=== PATIENT | female | born 1985 | race Caucasian/White ===

== ENCOUNTER 2021-10-04 08:11 | Emergency (ER) | payer BC, SELFPAY ==
[2021-10-04 08:34] VITALS: BP 126/82; PULSE 86; RESP 15; TEMP 36.7; O2SAT 99; BMI 37.8
[2021-10-04] MEDS: 0.9 % Sodium Chloride 1,000 ML 999 ML IV (08:44)
[2021-10-04 08:50] LABS: MANUAL DIFF FLAG NO
[2021-10-04 08:53] LABS: Basophils Percent Auto 0.5 % (0-2); Eosinophils Absolute Auto 0.1 X10*3/uL (0.0-0.4); Eosinophils Percent Auto 1.3 % (0-4); Hematocrit 40.6 % (37.0-47.0); Hemoglobin 13.2 g/dl (12.0-16.0); Imm Gran Abs Auto 0.03 X10*3/uL (0.00-0.03); Imm Gran Pct Auto 0.4 % (0.0-0.4); Lymphocytes Absolute Auto 1.1 X10*3/uL (1.2-4.9); Lymphocytes Percent Auto 13.7 % (20-40); Mean Corpuscular HGB Conc 32.5 g/dl (31.0-35.0); Mean Corpuscular Hemoglobin 30.1 pg (27.0-33.0); Mean Corpuscular Volume 92.5 fL (80.0-98.0); Mean Platelet Volume 8.9 fL (9.4-12.3); Monocytes Absolute Auto 0.5 X10*3/uL (0.1-1.2); Monocytes Percent Auto 5.6 % (2-11); Neutrophils Absolute Auto 6.5 x10*3/uL (2.0-8.3); Neutrophils Percent Auto 78.5 % (45-73); Platelet Count 337 X10*3/uL (160-400); Red Blood Count 4.39 X10*6/uL (4.20-5.50); Red Cell Distribution Width 12.9 % (11.0-16.0); White Blood Count 8.2 X10*3/uL (4.8-10.8)
[2021-10-04 09:05] LABS: Alanine Aminotransferase 13 U/L (0-31); Albumin Level 4.4 g/dL (3.5-5.0); Alkaline Phosphatase 65 U/L (39-117); Anion Gap 11 (12-20); Aspartate Amino Transferase 18 U/L (5-31); Bilirubin Direct 0.4 mg/dL (0.0-0.5); Bilirubin Total 1.3 mg/dL (0.0-1.0); Blood Urea Nitrogen 8 mg/dL (9-16); Calcium 8.7 mg/dL (8.4-10.2); Carbon Dioxide 27 mmol/L (22-29); Chloride 106 mmol/L (96-108); Creatinine Clr Calc Pharmacy 115.5; Estimated Glomerular Filt Rate > 60; Glucose Random 100 mg/dL (60-115); Sodium 140 mmol/L (135-145); Total Protein 7.1 g/dL (6.5-8.0)
[2021-10-04 09:09] LABS: COVID-19 Test Negative (Negative)
[2021-10-04 09:23] LABS: Appearance Urine HAZY; Color Urine YELLOW; Glucose Urine UA NEG (NEG); Leukocyte Esterase Urine NEG (NEG); Nitrite Urine NEG (NEG); PH 6.5 (5.0-8.0); UACC Culture Trigger NO; Urine Blood 2+ (NEG); Urine Ketones NEG (NEG); Urine Protein NEG (NEG-TRACE)
--- NOTE | 2021-10-04 09:23 | ED.NAVMDI ---
HPI - Nausea/Vomiting/Diarrhea General Chief complaint: Nausea/Vomiting/Diarrhea Stated complaint: vomiting, abd pain, diarrhea Time Seen by Provider: 10/04/21 08:36 Source: patient Mode of arrival: ambulatory Limitations: no limitations History of Present Illness HPI Narrative: 36-year-old woman medical history presents to ED for runny nose, nausea, and diarrhea for the past 4 days. Patient states the 2nd time having this episode. Patient states for the past 2 months before she has a menstruation she has these symptoms. Patient denies any abdominal pain, dysuria, hematuria, flank pain, fever, chills, blood in stool, chest pain, black stool, or shortness of breath. Patient states she is vaccinated against COVID-19. Associated nausea: Yes Related Data Home Medications Medication Instructions Recorded Confirmed cetirizine 10 mg tablet 10 mg PO DAILY 09/06/21 hydroxyzine pamoate 25 mg capsule 25 mg PO Q6H PRN 09/06/21 triamcinolone acetonide 55 mcg 2 spray INTRANASAL DAILY 09/06/21 nasal spray aerosol escitalopram oxalate 5 mg tablet 1 tab PO DAILY 10/04/21 Previous Rx's Medication Instructions Recorded loperamide 2 mg capsule 2 mg PO QID PRN 2 Days #8 cap 10/04/21 Allergies Allergy/AdvReac Type Severity Reaction Status Date / Time No Known Allergies Allergy Verified 09/06/21 09:21 Review of Systems Review of Systems: Yes all other systems are reviewed and are negative Constitutional: Constitutional: Reports as per HPI and Reports no additional constitutional complaints Eyes: Eyes: Reports as per HPI and Reports no additional eye complaints ENT: Reports system reviewed and no additional complaints, except as documented, Reports as per HPI and Reports nasal congestion Cardiovascular: Cardiovascular: Reports as per HPI and Reports no additional cardiovascular complaints Respiratory: Respiratory: Reports as per HPI and Reports no additional respiratory complaints Gastrointestinal: Gastrointestinal: Reports as per HPI, Reports no additional gastrointestinal complaints, Denies abdominal pain, Denies GI cramping, Reports diarrhea and Reports nausea Genitourinary: Genitourinary: Reports no additional female genitourinary complaints and Reports as per HPI Musculoskeletal: Musculoskeletal: Reports no additional musculoskeletal complaints and Reports as per HPI Neurologic: Reports system reviewed and no additional complaints, except as documented and Reports as per HPI Psychiatric: Psychiatric: Reports no additional psychiatric complaints and Reports as per HPI [facility] Social History Social History Patient Tobacco Use Status: Never used Tobacco Use of substances other than those prescribed or required for medical reasons: No Advance Directives: Yes Advance Directives Information Provided: Yes Advance Directives on File: No Patient : No Physical Exam Vital Signs: Vital Signs: Last Vital Signs Temp 98.9 F 10/04/21 09:30 Pulse 81 10/04/21 09:30 Resp 16 10/04/21 09:30 BP 125/81 10/04/21 09:30 Pulse Ox 96 10/04/21 09:30 Body Mass Index 37.8 Const: General: cooperative, healthy appearing, comfortable, no acute distress, well developed, alert, awake and Physically active Orientation/consciousness: patient oriented x3 HENMT: Head: Yes normal to inspection, Yes No palpable skull fracture present, Yes normocephalic, Yes atraumatic, No abrasion, No Acrocyanosis present, No Fischer's sign, No contusion, No cranial bruits, No hematoma, No laceration, No occipital foramen tenderness, No palpable skull fracture, No raccoon eyes, No scalp lesion, No scalp tenderness, No Temporal artery tenderness present and No periorbital ecchymosis Eyes: General: appearance normal, both eyes and all related structures Neck: Neck: Yes normal visual inspection, Yes full ROM, Yes no lymphadenopathy, Yes no meningeal signs, Yes trachea midline, Yes supple and No tender Chest: Chest palpation & inspection: normal inspection of the chest and normal palpation of entire chest wall Resp: Effort & Inspection: normal respiratory effort and able to speak in complete sentences Auscultation: clear to auscultation bilaterally Cardio: Jugular venous distension: no JVD Heart sounds: S1 normal heart sound present and S2 normal heart sound present GI: Inspection: Yes normal to inspection and No abdominal wall ecchymosis Palpation (GI): Soft to palpation, not firm, nontender, no guarding and not rigid : General: No CVA tenderness and Yes no CVA tenderness Back/Spine/Pelvis: Back: no CVA tenderness, No CVA tenderness and No back tenderness Skin: General skin exam: no rashes or lesions noted and elasticity normal Neuro: General: patient oriented x3, gait normal, no meningeal signs and CN's II-XI intact bilaterally Cranial nerves: Yes CN's II-XII intact bilaterally Extrem: General: Yes normal to inspection and Yes full ROM Psych: Appearance: grossly normal, well kempt and not disheveled Course Course Course Narrative: Patient is not in any distress. Labs in fluids ordered. Stool culture ordered. COVID swab ordered. Reevaluation(s) Reevaluation #1: Patient labs are normal. COVID swab negative. Urine came back normal. Patient states not able or have the urge to give stool sample. Patient informed to follow-up with outpatient PCP to have stool culture to check for C diff and other bacteria. Patient is safe for discharge. Patient not in any distress. Time: 10:21 MDM - Nausea/Vomiting/Diarrhea MDM Narrative Medical decision making narrative: Gastroenteritis Lab Data Result diagrams: 10/04/21 08:46 10/04/21 08:46 Labs: Lab Results 10/04/21 10/04/21 10/04/21 Range/Units 08:46 08:46 08:46 WBC 8.2 (4.8-10.8) X10*3/uL RBC 4.39 (4.20-5.50) X10*6/uL Hgb 13.2 (12.0-16.0) g/dl Hct 40.6 (37.0-47.0) % MCV 92.5 (80.0-98.0) fL MCH 30.1 (27.0-33.0) pg MCHC 32.5 (31.0-35.0) g/dl RDW 12.9 (11.0-16.0) % Plt Count 337 (160-400) X10*3/uL MPV 8.9 L (9.4-12.3) fL Immature Gran % (Auto) 0.4 (0.0-0.4) % Neut % (Auto) 78.5 H (45-73) % Lymph % (Auto) 13.7 L (20-40) % Nuckolls % (Auto) 5.6 (2-11) % Eos % (Auto) 1.3 (0-4) % Baso % (Auto) 0.5 (0-2) % Lymph # (Auto) 1.1 L (1.2-4.9) X10*3/uL Nuckolls # (Auto) 0.5 (0.1-1.2) X10*3/uL Eos # (Auto) 0.1 (0.0-0.4) X10*3/uL Baso # (Auto) 0.0 (0.0-0.2) X10*3/uL Abs Immat Gran (auto) 0.03 (0.00-0.03) X10*3/uL Absolute Neuts (auto) 6.5 (2.0-8.3) x10*3/uL Absolute Nucleated RBC 0.000 (0.0-0.012) X10*3/uL Nucleated RBC % (auto) 0.0 (0.0-0.2) /100WBC Sodium 140 (135-145) mmol/L Potassium 4.0 (3.3-5.1) mmol/L Chloride 106 (96-108) mmol/L Carbon Dioxide 27 (22-29) mmol/L Anion Gap 11 L (12-20) BUN 8 L (9-16) mg/dL Creatinine 0.78 (0.5-1.4) mg/dL Estim Creat Clear Calc 115.5 Estimated GFR > 60 Random Glucose 100 (60-115) mg/dL Calcium 8.7 (8.4-10.2) mg/dL Total Bilirubin 1.3 H (0.0-1.0) mg/dL Direct Bilirubin 0.4 (0.0-0.5) mg/dL AST 18 (5-31) U/L ALT 13 (0-31) U/L Alkaline Phosphatase 65 (39-117) U/L Total Protein 7.1 (6.5-8.0) g/dL Albumin 4.4 (3.5-5.0) g/dL Urine Color Urine Appearance Urine pH (5.0-8.0) Ur Specific Hewitt (1.005-1.025) Urine Protein (NEG-TRACE) MG/DL Urine Glucose (UA) (NEG) MG/DL Urine Ketones (NEG) MG/DL Urine Blood (NEG) Urine Nitrite (NEG) Ur Leukocyte Esterase (NEG) Urine RBC (0) /HPF Urine WBC (0-4) /HPF Ur Squamous Epith Cells /LPF Urine Bacteria /LPF Urine Test (NEGATIVE) COVID-19 (NADIA) Negative (Negative) COVID-19 Clin Com See Note 10/04/21 10/04/21 Range/Units 09:12 09:12 WBC (4.8-10.8) X10*3/uL RBC (4.20-5.50) X10*6/uL Hgb (12.0-16.0) g/dl Hct (37.0-47.0) % MCV (80.0-98.0) fL MCH (27.0-33.0) pg MCHC (31.0-35.0) g/dl RDW (11.0-16.0) % Plt Count (160-400) X10*3/uL MPV (9.4-12.3) fL Immature Gran % (Auto) (0.0-0.4) % Neut % (Auto) (45-73) % Lymph % (Auto) (20-40) % Nuckolls % (Auto) (2-11) % Eos % (Auto) (0-4) % Baso % (Auto) (0-2) % Lymph # (Auto) (1.2-4.9) X10*3/uL Nuckolls # (Auto) (0.1-1.2) X10*3/uL Eos # (Auto) (0.0-0.4) X10*3/uL Baso # (Auto) (0.0-0.2) X10*3/uL Abs Immat Gran (auto) (0.00-0.03) X10*3/uL Absolute Neuts (auto) (2.0-8.3) x10*3/uL Absolute Nucleated RBC (0.0-0.012) X10*3/uL Nucleated RBC % (auto) (0.0-0.2) /100WBC Sodium (135-145) mmol/L Potassium (3.3-5.1) mmol/L Chloride (96-108) mmol/L Carbon Dioxide (22-29) mmol/L Anion Gap (12-20) BUN (9-16) mg/dL Creatinine (0.5-1.4) mg/dL Estim Creat Clear Calc Estimated GFR Random Glucose (60-115) mg/dL Calcium (8.4-10.2) mg/dL Total Bilirubin (0.0-1.0) mg/dL Direct Bilirubin (0.0-0.5) mg/dL AST (5-31) U/L ALT (0-31) U/L Alkaline Phosphatase (39-117) U/L Total Protein (6.5-8.0) g/dL Albumin (3.5-5.0) g/dL Urine Color YELLOW Urine Appearance HAZY Urine pH 6.5 (5.0-8.0) Ur Specific Hewitt 1.010 (1.005-1.025) Urine Protein NEG (NEG-TRACE) MG/DL Urine Glucose (UA) NEG (NEG) MG/DL Urine Ketones NEG (NEG) MG/DL Urine Blood 2+ H (NEG) Urine Nitrite NEG (NEG) Ur Leukocyte Esterase NEG (NEG) Urine RBC 10-14 H (0) /HPF Urine WBC 0 (0-4) /HPF Ur Squamous Epith Cells TRACE /LPF Urine Bacteria NONE /LPF Urine Test NEGATIVE (NEGATIVE) COVID-19 (NADIA) (Negative) COVID-19 Clin Com Discharge Plan Discharge Clinical Impression: Gastroenteritis Patient Disposition: Home, Self-Care Instructions: Gastroenteritis (ED), Acute Diarrhea (ED) Additional Instructions: Your blood work came back normal. COVID swab and urine came back negative. You are not able to give a stool sample during ED visit. Please follow-up with primary care provider to give him stool culture to test for C diff and other bacteria in the stool for a return to ED for any abdominal pain, nausea, vomiting, fever, chills, weakness, blood in stool, or any other concerning symptoms. Prescriptions: New loperamide 2 mg capsule 2 mg PO QID PRN (Reason: loose stool) 2 Days Qty: 8 RF: 0 No Action escitalopram oxalate 5 mg tablet 1 tab PO DAILY RF: 0 Stand Alone Forms: Work/School Release Interventions: ED Discharge Assessment Last Done: 10/04/21 10:46 Discharge Date/Time: 10/04/21 10:47 Print Language: Austrian
[2021-10-04 09:25] LABS: UPreg QC Valid YES; Urine Pregnancy NEGATIVE (NEGATIVE)
[2021-10-04 09:30] VITALS: BP 125/81; PULSE 81; RESP 16; TEMP 37.2; O2SAT 96
[2021-10-04 09:31] LABS: Squamous Epithelial Cell Urine TRACE /LPF; WBC Urine 0 /HPF (0-4)
== END 2021-10-04 10:47 | disposition home or self-care (01) ==
PROVIDERS: Physician Assistant; Emergency Provider Emergency Medicine; PCP Family Medicine
DX: K52.9 Noninfective gastroenteritis and colitis, unspecified (principal); R11.2 Nausea with vomiting, unspecified; Z79.899 Other long term (current) drug therapy; Z20.822 Contact with and (suspected) exposure to COVID-19
CPT/HCPCS: 36415; 80053; 81001; 81025; 82248; 85025; 87635; 96360; 99284

== ENCOUNTER → 2021-10-09 11:07 | Outpatient (REF) | payer BC, SELFPAY ==
--- NOTE | 2021-10-09 11:14 | ECG_ITS ---
Test Reason : abn ekg Blood Pressure : / mmHG Vent. Rate : 092 BPM Atrial Rate : 092 BPM P-R Int : 146 ms QRS Dur : 082 ms QT Int : 380 ms P-R-T Axes : 076 -12 057 degrees QTc Int : 469 ms Normal sinus rhythm Left axis deviation Intra-ventricular conduction delay Borderline ECG When compared with ECG of 04-JAN-2020 08:14, No significant change was found Referred By: Margaret Blankenship Electronically Signed By:MELONIE MILLER MD
== END ==
LOC: HO.CARD 11:07
PROVIDERS: PCP Family Medicine; Visit Provider Family Medicine
DX: R94.31 Abnormal electrocardiogram [ECG] [EKG] (principal)
CPT/HCPCS: 93005

== ENCOUNTER → 2021-11-27 14:26 | Outpatient (BNVA) | payer BC, SELFPAY | PROVIDERS: PCP Family Medicine; Referring Provider Family Medicine; Visit Provider Internal Medicine Cardiovascular Disease ==

== ENCOUNTER → 2021-12-13 10:54 | Outpatient (REF) | payer BC, SELFPAY ==
--- NOTE | 2021-12-13 10:58 | HM_ITS ---
Conclusion: 1. Patient was monitored for total period of 3 days and 14 hours 2. Baseline was normal sinus rhythm with average heart rate of 89 beats per minute 3. No significant pauses or bradycardia noted 4. No significant tachyarrhythmias noted 5. No patient reported events MTDD
== END ==
LOC: HO.CARD 10:54
PROVIDERS: PCP Family Medicine; Visit Provider Internal Medicine Cardiovascular Disease
DX: R00.2 Palpitations (principal)
CPT/HCPCS: 93242

== ENCOUNTER → 2022-04-10 15:09 | Outpatient (BNVA) | payer BC, SELFPAY | PROVIDERS: PCP Family Medicine; Referring Provider Family Medicine; Visit Provider Internal Medicine Cardiovascular Disease | DX: R00.2 Palpitations (principal) ==

== ENCOUNTER → 2022-12-22 09:41 | Outpatient (BNVA) | payer BC, SELFPAY | PROVIDERS: PCP Family Medicine; Referring Provider Family Medicine; Visit Provider Internal Medicine Cardiovascular Disease | DX: R00.2 Palpitations (principal) | CPT/HCPCS: 93005 ==

== ENCOUNTER 2023-09-03 07:55 | Emergency (ER) | payer BC, SELFPAY ==
[2023-09-03 07:59] VITALS: BP 154/98; PULSE 73; RESP 16; TEMP 36.6; O2SAT 99; BMI 41.6
--- NOTE | 2023-09-03 08:51 | ED.GENADULT ---
HPI - General Adult General Chief complaint: Nausea/Vomiting/Diarrhea Stated complaint: vomiting weak Time Seen by Provider: 09/03/23 08:50 Source: patient Mode of arrival: ambulatory Limitations: no limitations History of Present Illness HPI narrative: Patient is a 38 year old assigned female at with no reported medical history presenting to the emergency department today with nausea, vomiting, and body aches. Patient states that she had a similar episode last month that resolved on it's own. Patient states that she normally when she begins vomiting, it takes days before it stops. Patient states that she has had to be hospitalized before for vomiting. Patient denies any dizziness, lightheadedness, fever, chills, blurry vision, double vision, loss of vision, chest pain, difficulty breathing, shortness of breath, back pain, night sweats, pain with urination, increased urinary frequency, increased urinary urgency, blood in her urine or stool, syncope or a near syncopal episode, recent trauma or falls, bowel incontinence, bladder incontinence, bowel retention, bladder retention, or any other complaints at this time. Onset (ago): hour(s) Location: abdomen Radiation: non-radiation Pain Consistency: constant Relieving factors: none Exacerbating factors: none Associated symptoms: malaise and nausea/vomiting Treatments prior to arrival: none Related Data Home Medications Medication Instructions Recorded Confirmed triamcinolone acetonide 55 mcg 2 spray intranasal DAILY 09/06/21 12/22/22 nasal spray aerosol aripiprazole 20 mg tablet 20 mg PO BEDTIME PRN 12/22/22 12/22/22 Previous Rx's Medication Instructions Recorded ondansetron 4 mg disintegrating 4 mg PO Q8H 3 days #9 tabs 09/03/23 tablet Allergies Allergy/AdvReac Type Severity Reaction Status Date / Time No Known Allergies Allergy Verified 12/22/22 09:49 Review of Systems Eyes: Eyes: Reports no additional eye complaints, Denies blurry vision, Denies change in vision, Denies diplopia, Denies eye discharge, Denies loss of vision and Denies eye pain ENT: Denies dizziness Cardiovascular: Cardiovascular: Reports no additional cardiovascular complaints, Denies chest pain, Denies lightheadedness, Denies Loss of Consciousness and Denies dyspnea Respiratory: Respiratory: Reports no additional respiratory complaints and Denies dyspnea Gastrointestinal: Gastrointestinal: Reports abdominal pain, Reports diarrhea, Reports nausea, Reports vomiting and Denies hematemesis Genitourinary: Genitourinary: Denies hematuria, Denies urinary frequency, Denies dysuria, Denies urinary incontinence, Denies urinary hesitancy and Denies urinary urgency Musculoskeletal: Musculoskeletal: Reports no additional musculoskeletal complaints, Denies numbness and Denies tingling Neurologic: Denies dizziness, Denies loss of vision, Denies numbness and Denies tingling Psychiatric: Psychiatric: Reports no additional psychiatric complaints Endocrine: Endocrine: Reports no additional endocrine complaints Hematologic/Lymphatic: Hematologic/Lymphatic: Reports no additional hematologic/lymphatic complaints Allergic/Immunologic: Allergic/Immunologic: Reports no additional allergic/immunologic complaints PMFSH Past Medical History Attestation statement: The following information was validated with the patient. (patient's validated all information provided by the patient.) Source: old records reviewed, obtained from family (patient's provided additional history and confirmed the history provided by the patient.) and nursing notes reviewed Medical History Screening cholesterol level Palpitations Medication reaction Surgical History History of section (~2014) History of tonsillectomy Family History Family History Father Heart disease Mother Heart disease Social History Social History Alcohol intake: current Alcohol intake frequency: a few times a month Patient Tobacco Use Status: Never used Tobacco Smoked in Last 30 Days: No Use of substances other than those prescribed or required for medical reasons: Yes Substance Use Type: Marijuana Advance Directives: No Advance Directives Information Provided: Yes Patient : No Physical Exam ED Vital Signs: Vital Signs - 24 hr 09/03/23 07:59 09/03/23 10:23 09/03/23 11:20 Temperature 97.8 F 96.9 F 97.6 F Pulse Rate 73 64 Respiratory Rate 16 17 Blood Pressure 154/98 H 161/71 H Pulse Oximetry 99 Oxygen Delivery Method Room Air BMI result Body Mass Index 41.6 Const General: cooperative, alert, awake and Physically active; No comfortable Nutritional Appearance: well nourished Orientation/consciousness: patient oriented x3 Limitations: no limitations HENMT Head: Yes normal to inspection Ears: hearing grossly normal bilaterally and external ears normal General nose exam: Normal external nose present, no nasal discharge noted and no epistaxis Face and sinus: Yes normal facial exam, No abrasion and No laceration Mouth: Normal oral and palatal mucosa present, no drooling and no muffled voice Eyes General: appearance normal, both eyes and all related structures Periorbital: periorbital findings normal Eyelids: Yes eyelids normal Conjunctivae: conjunctivae normal Pupils: Equal, round and reactive pupils present EOM: EOMs intact bilaterally Neck Neck: Yes normal visual inspection, Yes full ROM and Yes no lymphadenopathy Chest Chest palpation & inspection: normal inspection of the chest and normal palpation of entire chest wall Resp Effort & Inspection: normal respiratory effort, no cough, not labored and no nasal flaring Auscultation: clear to auscultation bilaterally GI Inspection: Yes normal to inspection, No Abdominal wall edema, No distended and No visible herniation Palpation (GI): Soft to palpation, not firm, Tenderness to palpation present (GI) in the epigastrum; Soler's sign negative, no guarding and no hepatosplenomegaly Percussion: Yes normal to percussion Auscultation: normal bowel sounds Neuro General: patient oriented x3 Cranial nerves: Yes Equal, round and reactive pupils present Cognition (Neuro): normal cognition Motor exam (neuro): 5/5 motor strength present throughout Sensory Exam: Normal double simultaneous stimulation for sensation Coordination: [id number] test normal Extrem General: Yes normal to inspection, Yes full ROM and Yes capillary refill normal Psych Appearance: grossly normal Mental Status: mental status grossly normal Affect: normal affect Attitude: cooperative Thought process: Normal thought process present Thought content: Normal thought content present Insight: Good insight present (Psych) Medications Administered Discontinued Medications Generic Name Dose Route Start Last Admin Trade Name Freq PRN Reason Stop Dose Admin Droperidol 1.25 mg 09/03/23 10:41 09/03/23 10:54 Droperidol 5 Mg/2 Ml Vial IVPUSH 09/03/23 10:42 1.25 mg ONCE ONE Administration Hydromorphone HCl 2 mg 09/03/23 11:06 09/03/23 11:11 Hydromorphone Hcl 2 Mg/Ml Vial IVPUSH 09/03/23 11:07 2 mg ONCE ONE Administration Protocol Sodium Chloride 1,000 mls @ 999 mls/hr 09/03/23 09:00 09/03/23 10:57 Ns IV 09/03/23 10:00 Infused .Q1H1M CHUY Infusion Iohexol 85 ml 09/03/23 12:29 09/03/23 12:30 Iohexol 350 Mg/Ml 75 Ml Infus..Btl IV 09/03/23 12:30 85 ml ONCE ONE Administration Ondansetron HCl 4 mg 09/03/23 08:55 09/03/23 09:48 Ondansetron Hcl 4 Mg/2 Ml Vial IVPUSH 09/03/23 08:56 4 mg ONCE ONE Administration Medical Decision Making Medical Decision Making [facility] Narrative: Patient is a 38 year old assigned female at with no reported medical history presenting to the emergency department today with nausea, vomiting, and abdominal pain. Patient's physical exam was as noted in the physical exam portion of this note. Patient's blood work showed a mildly elevated WBC count of 14.3 which I attribute to a stress reaction. Patient's urine showed no acute process. Patient's abdominal/pelvis CT showed no acute process. I explained my physical exam findings as well as all test results to the patient and the patient's . I answered all questions asked by the patient and the patient's . Patient received IV dilaudid, Zofran, Reglan, and droperidol which she stated helped her symptoms significantly. I stressed the importance of the patient taking her medication as prescribed. I stressed the importance of the patient following up with her primary care provider. I stressed the importance of the patient returning to the emergency department immediately if her symptoms were to worsen or if she were to develop any dizziness, shortness of breath, difficulty breathing, chest pain, blurry vision, loss of vision, nausea, vomiting, abdominal pain, fever, chills, back pain, or any other complaints. Patient and the patient's verbalized agreement and understanding with this treatment plan and discharge. Differential Diagnosis Differential Diagnoses: The differential diagnosis associated with the presentation includes Abdominal pain Nausea Vomiting Gastroenteritis Cyclic vomiting syndrome CHS Admission/Observation Consideration of admission/observation: Escalation of care including admission/observation considered Patient would have been admitted to the hospital had her work up had any findings where hospital admission was appropriate and her clinical presentation warranted hospital admission. Lab Data [facility] Lab Attestation statement: I reviewed the patient's lab results. My interpretation of these studies and their corresponding values is that they are grossly normal. 09/03/23 10:24 09/03/23 10:53 Labs: Lab Results 09/03/23 09/03/23 09/03/23 Range/Units 10:24 10:53 13:16 WBC 14.3 H (4.8-10.8) X10*3/uL RBC 4.59 (4.20-5.50) X10*6/uL Hgb 14.1 (12.0-16.0) g/dl Hct 42.5 (37.0-47.0) % MCV 92.6 (80.0-98.0) fL MCH 30.7 (27.0-33.0) pg MCHC 33.2 (31.0-35.0) g/dl RDW 12.8 (11.0-16.0) % Plt Count 404 H (160-400) X10*3/uL MPV 9.2 L (9.4-12.3) fL Immature Gran % (Auto) 0.8 H (0.0-0.4) % Neut % (Auto) 89.1 H (45-73) % Lymph % (Auto) 6.7 L (20-40) % [place] % (Auto) 2.9 (2-11) % Eos % (Auto) 0.1 (0-4) % Baso % (Auto) 0.4 (0-2) % Lymph # (Auto) 1.0 L (1.2-4.9) X10*3/uL [place] # (Auto) 0.4 (0.1-1.2) X10*3/uL Eos # (Auto) 0.0 (0.0-0.4) X10*3/uL Baso # (Auto) 0.1 (0.0-0.2) X10*3/uL Abs Immat Gran (auto) 0.12 H (0.00-0.03) X10*3/uL Absolute Neuts (auto) 12.7 H (2.0-8.3) x10*3/uL Absolute Nucleated RBC 0.000 (0.0-0.012) X10*3/uL Nucleated RBC % (auto) 0.0 (0.0-0.2) /100WBC Sodium Cancelled 140 Potassium Cancelled 3.8 Chloride Cancelled 108 Carbon Dioxide Cancelled 19 L Anion Gap Cancelled 17 BUN Cancelled 12 Creatinine Cancelled 0.76 Estim Creat Clear Calc Cancelled 127.2 Estimated GFR Cancelled > 60 Random Glucose Cancelled 163 H Calcium Cancelled 9.5 D Magnesium Cancelled 1.9 Total Bilirubin Cancelled 0.8 AST Cancelled 17 ALT Cancelled 13 Alkaline Phosphatase Cancelled 78 Total Protein Cancelled 7.6 Albumin Cancelled 4.4 Lipase 17 (8-78) U/L Beta HCG, Quant Cancelled < 2 Urine Color Yellow Urine Appearance Clear Urine pH 8.5 (5.0-9.0) Ur Specific [place] >= 1.030 H (1.005-1.025) Urine Protein Trace (Neg-Trace) mg/dL Urine Glucose (UA) Negative (Negative) mg/dL Urine Ketones 80 (Negative) mg/dL Urine Blood Negative (Negative) Urine Nitrite Negative (Negative) Ur Leukocyte Esterase Negative (Negative) Urine Opiates Screen Not Detected (Not Detect) Urine Fentanyl Screen Not Detected (Not Detect) Ur Barbiturates Screen Not Detected (Not Detect) Ur Phencyclidine Scrn Not Detected (Not Detect) Ur Amphetamines Screen Not Detected (Not Detect) U Benzodiazepines Scrn Not Detected (Not Detect) Urine Cocaine Screen Not Detected (Not Detect) U Marijuana (THC) Screen POSITIVE H (Not Detect) Influenza Type A (PCR) NEGATIVE (Negative) Influenza Type B (PCR) NEGATIVE (Negative) RSV RNA Qual (PCR) NEGATIVE (Negative) SARS-CoV-2 RNA (RT-PCR) NEGATIVE (Negative) Independent Interpretation I performed an independent interpretation of an: CT Scan Interpretation: My interpretation is in agreement with the radiologist's impression of this imaging study. EXAMINATION: CT ABDOMEN AND PELVIS WITH CONTRAST CLINICAL INFORMATION: Abdominal pain COMPARISON: None available. TECHNIQUE: Multidetector volumetric images were obtained from the superior aspect of the liver through the pubic symphysis following administration 85 mL of Omnipaque 350 intravenous contrast. Sagittal and coronal reformatted images were obtained on the technologist's workstation. Oral contrast: No This CT examination was performed using dose optimization techniques as appropriate, variously including the following: *Automated exposure control *Adjustment of mA and/or kV according to patient size (this includes techniques or standardized protocols for targeted exams where dose is matched to indication/reason for exam; i.e. extremities or head) *Use of iterative reconstruction technique DLP: 917 mGy-cm FINDINGS: LUNG BASES: The visualized lung bases are unremarkable. LIVER, GALLBLADDER, AND BILIARY TREE: The liver is normal in size, shape, and attenuation. No focal hepatic lesion or biliary ductal dilatation is present. The gallbladder is unremarkable with no evidence of radiopaque gallstones, gallbladder wall thickening, or obvious pericholecystic inflammatory changes. PANCREAS: Unremarkable. SPLEEN: Unremarkable. ADRENAL GLANDS: Unremarkable. KIDNEYS AND URETERS: The kidneys are normal in size, shape, and attenuation. No hydronephrosis, hydroureter, or calculi seen. No perinephric stranding. BLADDER: Unremarkable. GASTROINTESTINAL TRACT: The small and large bowel are unremarkable. The appendix is unremarkable. ABDOMINAL WALL: Small fat-containing umbilical hernia. Bowel and fat participate but does not appear incarcerated. LYMPH NODES: Normal. VASCULAR: Unremarkable. PELVIC VISCERA: Uterus and adnexal structures are age-appropriate. OSSEOUS STRUCTURES: Unremarkable. CT/CT abdomen pelvis w IV con IMPRESSION: No acute abnormalities. Dictated By: Rowdy Baxter MD Signed By: Electronically signed by Rowdy Baxter MD 09/03/23 1300 Radiology Impression Discussion of test interpretation with radiology: I have reviewed the radiologist's reading. Independent Historian Clinical information obtained from an independent historian. History obtained from or confirmed by: Spouse (patient's provided additional history and confirmed the history provided by the patient) Prescription Management I considered prescription management with: Other (patient given an antiemetic) Critical Care Time Critical Care Time Critical Care Time: Yes Total Critical Care Time: 45 Attestation: I spent 45 minutes of Critical Care Time with this patient. This does not include time spent on separately reported billable procedures. Discharge Plan Discharge Clinical Impression: Nausea & vomiting, Abdominal pain Patient Disposition: Home, Self-Care Instructions: Acute Nausea and Vomiting (ED), Abdominal Pain (ED) Additional Instructions: Follow up with your primary care provider. Return to the emergency department immediately if your symptoms worsen or if you develop any dizziness, shortness of breath, difficulty breathing, chest pain, blurry vision, loss of vision, nausea, vomiting, abdominal pain, fever, chills, back pain, or any other complaints. Prescriptions: New ondansetron 4 mg tablet,disintegrating 4 mg PO Q8H 3 Days Qty: 9 0RF No Action triamcinolone acetonide 55 mcg aerosol,spray 2 spray intranasal DAILY aripiprazole 20 mg tablet 20 mg PO BEDTIME PRN Referrals: Margaret Blankenship DO [Primary Care Provider] - Stand Alone Forms: Work/School Release Interventions: ED Discharge Assessment Last Done: 09/03/23 13:50 Discharge Date/Time: 09/03/23 13:51 Print Language: Slovenian
[2023-09-03 10:23] VITALS: BP 161/71; PULSE 64; RESP 17; TEMP 36.1
--- NOTE | 2023-09-03 11:00 | PC.NURSE ---
at bedside. 2 IVs placed L ac, L chest. pt c/o increased abdominal pain and continued nausea. more comfortable in R lateral position, feels faint when on her back. unable to stand to use commode, near syncope episode. SATISH pal
[2023-09-03 11:18] LABS: Alanine Aminotransferase 13 U/L (0-31); Albumin Level 4.4 g/dL (3.5-5.0); Alkaline Phosphatase 78 U/L (39-117); Anion Gap 17 (12-20); Aspartate Amino Transferase 17 U/L (5-31); Bilirubin Total 0.8 mg/dL (0.0-1.0); Blood Urea Nitrogen 12 mg/dL (9-16); Calcium 9.5 mg/dL (8.4-10.2); Carbon Dioxide 19 mmol/L (22-29); Chloride 108 mmol/L (96-108); Creatinine Clr Calc Pharmacy 127.2; Estimated Glomerular Filt Rate > 60; Glucose Random 163 mg/dL (60-115); Lipase 17 U/L (8-78); Magnesium 1.9 mg/dL (1.6-2.6); Potassium 3.8 mmol/L (3.3-5.1); Sodium 140 mmol/L (135-145); Total Protein 7.6 g/dL (6.5-8.0)
[2023-09-03 11:20] VITALS: TEMP 36.4
[2023-09-03 11:20] LABS: HCG Quantitative < 2 mIU/mL
== END 2023-09-03 13:51 | disposition home or self-care (01) ==
PROVIDERS: Physician Assistant Medical; Emergency Provider Emergency Medicine; PCP Family Medicine
DX: R11.2 Nausea with vomiting, unspecified (principal); R10.9 Unspecified abdominal pain; Z20.822 Contact with and (suspected) exposure to COVID-19; Z20.828 Contact with and (suspected) exposure to other viral communicable diseases; F12.90 Cannabis use, unspecified, uncomplicated; Z79.899 Other long term (current) drug therapy
CPT/HCPCS: 0241U; 36415; 74177; 80053; 80307; 81003; 83690; 83735; 84702; 85025; 96361; 96374; 96375; 99284; J1170; J1790; J2405; Q9967

== ENCOUNTER 2023-09-05 08:16 | Observation (INO) | payer BC, SELFPAY ==
--- NOTE | 2023-09-05 08:36 | ED.GENADULT ---
HPI - General Adult General Chief complaint: Nausea/Vomiting/Diarrhea Stated complaint: non stop throwing up Time Seen by Provider: 09/05/23 08:36 Source: patient Mode of arrival: ambulatory Limitations: no limitations History of Present Illness HPI narrative: Patient is a 38 year old assigned female at with no reported medical history presenting to the emergency department today with nausea, vomiting, and body aches. Patient states that she had a similar episode last month that resolved on it's own, and an episode 2 days ago that resolved after coming here and getting medication. Patient states that she normally when she begins vomiting, it takes days before it stops. Patient states that she has had to be hospitalized before for vomiting. Patient states that she attempted to use the anti nausea medication she was prescribed but it didn't help. Patient denies any dizziness, lightheadedness, fever, chills, blurry vision, double vision, loss of vision, chest pain, difficulty breathing, shortness of breath, back pain, night sweats, pain with urination, increased urinary frequency, increased urinary urgency, blood in her urine or stool, syncope or a near syncopal episode, recent trauma or falls, bowel incontinence, bladder incontinence, bowel retention, bladder retention, or any other complaints at this time. Onset (ago): hour(s) Relieving factors: none Exacerbating factors: none Associated symptoms: nausea/vomiting Treatments prior to arrival: other (zofran) Related Data Home Medications Medication Instructions Recorded Confirmed No Known Home Meds 09/05/23 09/05/23 Allergies Allergy/AdvReac Type Severity Reaction Status Date / Time No Known Allergies Allergy Verified 12/22/22 09:49 Review of Systems Constitutional: Constitutional: Reports no additional constitutional complaints, Denies chills, Denies fever(s) and Denies night sweats Eyes: Eyes: Reports no additional eye complaints, Denies blurry vision, Denies change in vision, Denies diplopia, Denies eye discharge, Denies loss of vision and Denies eye pain ENT: Denies dizziness Cardiovascular: Cardiovascular: Reports no additional cardiovascular complaints, Denies chest pain, Denies lightheadedness, Denies Loss of Consciousness and Denies dyspnea Respiratory: Respiratory: Reports no additional respiratory complaints and Denies dyspnea Gastrointestinal: Gastrointestinal: Reports no additional gastrointestinal complaints, Reports abdominal pain, Denies melena, Denies hematochezia, Denies change in bowel habits, Denies change in stool character, Reports nausea and Reports vomiting Genitourinary: Genitourinary: Denies hematuria, Denies urinary frequency, Denies dysuria, Denies urinary incontinence, Denies urinary hesitancy and Denies urinary urgency Musculoskeletal: Musculoskeletal: Reports no additional musculoskeletal complaints, Denies numbness and Denies tingling Neurologic: Denies dizziness, Denies loss of vision, Denies numbness and Denies tingling Psychiatric: Psychiatric: Reports no additional psychiatric complaints Endocrine: Endocrine: Reports no additional endocrine complaints Hematologic/Lymphatic: Hematologic/Lymphatic: Reports no additional hematologic/lymphatic complaints Allergic/Immunologic: Allergic/Immunologic: Reports no additional allergic/immunologic complaints [facility] Past Medical History Attestation statement: The following information was validated with the patient. Source: old records reviewed and nursing notes reviewed Medical History Screening cholesterol level Palpitations Medication reaction Surgical History History of section (~2014) History of tonsillectomy Family History Family History Father Heart disease Mother Heart disease Social History Social History Household Members: Spouse and Children Housing: House Do you presently have visiting nurse or other home services: No Alcohol intake: current Alcohol intake frequency: a few times a month Patient Tobacco Use Status: Never used Tobacco Substance Use Type: Marijuana service: No Physical Exam ED Vital Signs: Vital Signs - 24 hr 09/05/23 08:38 Temperature 98 F Pulse Rate 81 Respiratory Rate 16 Blood Pressure 151/85 H Pulse Oximetry 99 Oxygen Delivery Method Room Air BMI result Body Mass Index 43.2 Const General: cooperative, no acute distress, alert and awake Nutritional Appearance: well nourished Orientation/consciousness: patient oriented x3 Limitations: no limitations HENMT Head: Yes normal to inspection and Yes atraumatic Ears: hearing grossly normal bilaterally and external ears normal General nose exam: Normal external nose present, no nasal discharge noted and no epistaxis Face and sinus: Yes normal facial exam, No abrasion and No laceration Mouth: Normal oral and palatal mucosa present, no drooling and no muffled voice Eyes General: appearance normal, both eyes and all related structures Periorbital: periorbital findings normal Eyelids: Yes eyelids normal Conjunctivae: conjunctivae normal Pupils: Equal, round and reactive pupils present EOM: EOMs intact bilaterally Neck Neck: Yes normal visual inspection, Yes full ROM and Yes no lymphadenopathy Chest Chest palpation & inspection: normal inspection of the chest Resp Effort & Inspection: normal respiratory effort and able to speak in complete sentences Auscultation: clear to auscultation bilaterally Cardio Rate: regular rate Rhythm: regular rhythm GI Inspection: Yes normal to inspection Palpation (GI): Soft to palpation, not firm, nontender and no guarding Neuro General: patient oriented x3 and moves all extremities Cranial nerves: Yes Equal, round and reactive pupils present Cognition (Neuro): normal cognition Motor exam (neuro): 5/5 motor strength present throughout Sensory Exam: Normal double simultaneous stimulation for sensation Coordination: [id number] test normal Extrem General: Yes normal to inspection, Yes full ROM and Yes capillary refill normal Psych Appearance: grossly normal Mental Status: mental status grossly normal Affect: normal affect Attitude: cooperative Thought process: Normal thought process present Thought content: Normal thought content present Insight: Good insight present (Psych) Medications Administered Generic Name Dose Route Start Last Admin Trade Name Freq PRN Reason Stop Dose Admin Lactated Ringer's 1,000 mls @ 100 mls/hr 09/05/23 15:30 09/07/23 09:24 Lr IVCONT 100 mls/hr .Q10H CHUY Administration Metoclopramide HCl 10 mg 09/05/23 15:19 09/06/23 20:34 Metoclopramide Hcl 10 Mg/2 Ml Vial IVPUSH 10 mg Q6H PRN Administration Nausea and Vomiting Ondansetron HCl 4 mg 09/05/23 15:19 09/07/23 06:01 Ondansetron Hcl 4 Mg/2 Ml Vial IVPUSH 4 mg Q8H PRN Administration Nausea and Vomiting Pantoprazole Sodium 40 mg 09/06/23 07:45 09/07/23 06:00 Pantoprazole Sodium 40 Mg/10 Ml Vial IVPUSH 40 mg BID@0630,1630 CHUY Administration Sodium Chloride 3 ml 09/05/23 16:00 09/07/23 09:24 0.9 % Sodium Chloride Flush 3 Ml Syringe IVFLUSH 3 ml QSHIFT CHUY Administration Discontinued Medications Generic Name Dose Route Start Last Admin Trade Name Izzy PRN Reason Stop Dose Admin Diazepam 5 mg 09/07/23 00:37 09/07/23 01:33 Diazepam 10 Mg/2 Ml Cartridge IVPUSH 09/07/23 00:38 5 mg ONCE ONE Administration Droperidol 1.25 mg 09/05/23 08:36 09/05/23 09:39 Droperidol 5 Mg/2 Ml Vial IVPUSH 09/05/23 08:37 1.25 mg ONCE ONE Administration Hydromorphone HCl 1 mg 09/05/23 08:36 09/05/23 09:37 Hydromorphone Hcl 1 Mg/Ml Syringe IVPUSH 09/05/23 08:37 1 mg ONCE ONE Administration Protocol Sodium Chloride 1,000 mls @ 999 mls/hr 09/05/23 08:45 09/05/23 10:55 Ns IV 09/05/23 09:45 Infused .Q1H1M CHUY Infusion Sodium Chloride 1,000 mls @ 999 mls/hr 09/05/23 14:00 09/05/23 15:26 Ns IV 09/05/23 15:00 Infused .Q1H1M CHUY Infusion Metoclopramide HCl 10 mg 09/05/23 12:03 09/05/23 12:08 Metoclopramide Hcl 10 Mg/2 Ml Vial IVPUSH 09/05/23 12:04 10 mg ONCE ONE Administration Ondansetron HCl 4 mg 09/05/23 13:46 09/05/23 13:53 Ondansetron Hcl 4 Mg/2 Ml Vial IVPUSH 09/05/23 13:47 4 mg ONCE ONE Administration Ondansetron HCl 4 mg 09/07/23 09:08 09/07/23 09:24 Ondansetron Hcl 4 Mg/2 Ml Vial IVPUSH 09/07/23 09:09 4 mg ONCE ONE Administration Prochlorperazine Edisylate 10 mg 09/05/23 14:16 09/05/23 15:25 Prochlorperazine Edisylate 10 Mg/2 Ml Vial IVPUSH 09/05/23 14:17 10 mg ONCE ONE Administration Medical Decision Making Medical Decision Making MDM Narrative: Patient is a 38 year old assigned female at with a history of cyclic vomiting syndrome presenting to the emergency department today with nausea and vomiting. Patient's physical exam was as noted in the physical exam portion of this note. Patient's blood work was unremarkable. Patient's urine showed no acute process. Patient was given multiple doses of anti-emetics and fluids while in the emergency department however, she continued to fail PO challenges. I spoke with the hospitalist who agreed to admission. I explained my physical exam findings as well as all test results to the patient. I answered all questions asked by the patient. Patient verbalized agreement and understanding with this treatment plan and admission. Differential Diagnosis Differential Diagnoses: The differential diagnosis associated with the presentation includes Cyclic vomiting Nausea Vomiting Admission/Observation Consideration of admission/observation: Escalation of care including admission/observation considered Patient admitted. Consult Healthcare Provider Management of the patient was discussed with: Hospitalist (agreed to admission.) Lab Data MDM Lab Attestation statement: I reviewed the patient's lab results. My interpretation of these studies and their corresponding values is that they are grossly normal. 09/06/23 06:52 09/06/23 06:52 Labs: Lab Results 09/05/23 Range/Units 09:55 WBC 11.8 H (4.8-10.8) X10*3/uL RBC 4.44 (4.20-5.50) X10*6/uL Hgb 13.8 (12.0-16.0) g/dl Hct 40.3 (37.0-47.0) % MCV 90.8 (80.0-98.0) fL MCH 31.1 (27.0-33.0) pg MCHC 34.2 (31.0-35.0) g/dl RDW 12.4 (11.0-16.0) % Plt Count 381 (160-400) X10*3/uL MPV 8.8 L (9.4-12.3) fL Immature Gran % (Auto) 0.3 (0.0-0.4) % Neut % (Auto) 84.1 H (45-73) % Lymph % (Auto) 10.0 L (20-40) % [place] % (Auto) 4.3 (2-11) % Eos % (Auto) 0.8 (0-4) % Baso % (Auto) 0.5 (0-2) % Lymph # (Auto) 1.2 (1.2-4.9) X10*3/uL [place] # (Auto) 0.5 (0.1-1.2) X10*3/uL Eos # (Auto) 0.1 (0.0-0.4) X10*3/uL Baso # (Auto) 0.1 (0.0-0.2) X10*3/uL Abs Immat Gran (auto) 0.04 H (0.00-0.03) X10*3/uL Absolute Neuts (auto) 9.9 H (2.0-8.3) x10*3/uL Absolute Nucleated RBC 0.000 (0.0-0.012) X10*3/uL Nucleated RBC % (auto) 0.0 (0.0-0.2) /100WBC Sodium 142 (135-145) mmol/L Potassium 3.9 (3.3-5.1) mmol/L Chloride 109 H (96-108) mmol/L Carbon Dioxide 18 L (22-29) mmol/L Anion Gap 19 (12-20) BUN 10 (9-16) mg/dL Creatinine 0.78 (0.5-1.4) mg/dL Estim Creat Clear Calc 126.8 Estimated GFR > 60 Random Glucose 124 H (60-115) mg/dL Calcium 8.9 D (8.4-10.2) mg/dL Total Bilirubin 1.0 (0.0-1.0) mg/dL AST 19 (5-31) U/L ALT 12 (0-31) U/L Alkaline Phosphatase 70 (39-117) U/L Total Protein 7.2 (6.5-8.0) g/dL Albumin 4.1 (3.5-5.0) g/dL Critical Care Time Critical Care Time Critical Care Time: Yes Total Critical Care Time: 60 Attestation: I spent 60 minutes of Critical Care Time with this patient. This does not include time spent on separately reported billable procedures. Discharge Plan Discharge Clinical Impression: Cyclic vomiting syndrome, Cannabis abuse, daily use Patient Disposition: Admitted As Inpatient Interventions: Admission Worksheet (ED) Last Done: 09/05/23 16:42 Discharge Date/Time: 09/05/23 16:42
[2023-09-05 08:38] VITALS: BP 151/85; PULSE 81; RESP 16; TEMP 36.6; O2SAT 99; BMI 43.2
--- NOTE | 2023-09-05 10:30 | PC.NURSE ---
pt reports that she is beginning to feel better after the medications given. lights dimmed, pt allowed to rest, rest of fluids are finishing infusing
[2023-09-05 10:38] VITALS: BP 177/83; PULSE 61; RESP 12; O2SAT 100
[2023-09-05 13:43] VITALS: BP 177/90; PULSE 72; RESP 16; O2SAT 100
--- NOTE | 2023-09-05 13:43 | PC.NURSE ---
pt trial PO with crackers and gingerale. reports mild nausea, denies pain
--- NOTE | 2023-09-05 14:49 | PHA.MEDREC ---
Pharmacy Consult ? Medication Reconciliation Pharmacy has completed the medication reconciliation.
--- NOTE | 2023-09-05 15:22 | PM.IMHP ---
History of Present Illness Date of Service: 09/05/23 Attending physician on admission: Eladio Emmanuel Chief Complaint: intractable vomiting 38-year-old female with history of cyclic vomiting syndrome, daily cannabis use presents to the ED earlier today for evaluation of intractable nausea and vomiting. She states that she has been experiencing episodic flares of cyclic vomiting ongoing for about 8 years. She reports she has about 3-4 episodes per year where she experiences nausea and vomiting for several days at a time before symptoms resolve. She has not been able to identify any triggers. She thought alcohol was possibly contributing as she was drinking about 2 alcoholic beverages on a daily basis. However, she stopped consuming alcohol about 4 weeks ago and had recurrent symptoms that began yesterday. Reports smoking marijuana 3 times daily. Denies any illicit drug use or cigarette smoking. She is not been able to tolerate any food though has been able to tolerate small amounts of liquid. She denies any associated fevers, rigors, constipation, melena, hematochezia, lightheadedness, shortness breath, chest pain. She does endorse diffuse abdominal pain without any radiation and also states she has diarrhea chronically. She has never been seen by Gastroenterology for symptoms. She was seen in the ED yesterday with CT abdomen/pelvis did not reveal any acute intra-abdominal abnormalities. Two treated with Dilaudid and droperidol which seemed to improve her symptoms but these recurred when she got home prompting her to return to the ED earlier today for evaluation. While in the ED today, patient hypertensive to 177/90, vitals otherwise stable. She has no known history of hypertension. She has a mild leukocytosis of 11.8, hematology studies otherwise unremarkable. Renal function is normal. Electrolyte levels normal except for slightly elevated chloride 109 and CO2 18. Hepatic function normal. In the ED, has received 1 mg Dilaudid, 10 mg Reglan, 1.5 mg droperidol, 4 mg ondansetron, and 10 mg Compazine. Despite this, continues with intractable nausea and vomiting unable to tolerate food. Review of Systems Review of Systems: General: No fevers, malaise, unintentional weight loss HEENT: No blurred vision, diplopia. No sore throat, nasal congestion, rhinorrhea, sinus pain, ear pain Cardiovascular: No chest pain, palpitations, or leg edema Respiratory: No shortness of breath, wheezing, cough GI: +abd pain, +n/v/v. No constipation, melena, hematochezia : No dysuria, hematuria, increased urinary frequency, decreased urinary output MSK: No myalgia, back pain Neuro: No headaches, weakness, paresthesias Skin: No rashes or lesions [facility] Medical History Screening cholesterol level Palpitations Medication reaction Family History Father Heart disease Mother Heart disease Surgical History History of section (~2014) History of tonsillectomy Social History Alcohol intake: current Alcohol intake frequency: a few times a month Patient Tobacco Use Status: Never used Tobacco Smoked in Last 30 Days: No Use of substances other than those prescribed or required for medical reasons: No Substance Use Type: Marijuana Advance Directives: No Meds Allergies Allergy/AdvReac Type Severity Reaction Status Date / Time No Known Allergies Allergy Verified 12/22/22 09:49 Home Medications Medication Instructions Recorded Confirmed Last Taken Type No Known Home Meds 09/05/23 09/05/23 Unknown History Physical Exam Vital Signs and Narrative: Vital Signs: Last Vital Signs Temp 98 F 09/05/23 08:38 Pulse 72 09/05/23 13:43 Resp 16 09/05/23 13:43 BP 177/90 H 09/05/23 13:43 Pulse Ox 100 09/05/23 13:43 O2 Del Method Room Air 09/05/23 13:43 BMI result Body Mass Index 43.2 Constitutional - Awake and Alert, No apparent distress Eyes - PERRLA, EOMI Cardiovascular - S1S2, RRR, No edema Respiratory - Normal lung expansion, Normal respiratory effort, No respiratory distress, CTA bilaterally Gastrointestinal - epigastric and rlq ttp without involuntary guarding or rebound tenderness. ND; +BS Extremities - no calf tenderness bilaterally, no swelling Skin - Warm/Dry Neurological - Alert & oriented x3 Psychological - Appropriate affect Results Labs 09/05/23 09:55 09/05/23 09:55 Labs: Laboratory Results - last 24 hr 09/05/23 09:55 MCV 90.8 MCH 31.1 MCHC 34.2 RDW 12.4 Plt Count 381 MPV 8.8 L Immature Gran % (Auto) 0.3 Neut % (Auto) 84.1 H Lymph % (Auto) 10.0 L [place] % (Auto) 4.3 Eos % (Auto) 0.8 Baso % (Auto) 0.5 Lymph # (Auto) 1.2 [place] # (Auto) 0.5 Eos # (Auto) 0.1 Baso # (Auto) 0.1 Abs Immat Gran (auto) 0.04 H Absolute Neuts (auto) 9.9 H Absolute Nucleated RBC 0.000 Nucleated RBC % (auto) 0.0 Anion Gap 19 Estim Creat Clear Calc 126.8 Estimated GFR > 60 Random Glucose 124 H Calcium 8.9 D Total Bilirubin 1.0 AST 19 ALT 12 Alkaline Phosphatase 70 Total Protein 7.2 Albumin 4.1 Assessment and Plan (1) Cyclic vomiting syndrome: Status: Acute (2) Cannabis abuse, daily use: Status: Acute Plan 38-year-old female with history of cyclic vomiting syndrome, daily cannabis use to be observed for intractable nausea and vomiting with PO intolerance. # cyclic vomiting syndrome-likely cannabis hyperemesis syndrome -Mild leukocytosis likely reactive -only tolerating small amounts clear liquids -Clear liquid diet- advanced as tolerated -IV LR @100ml/hr until tolerating more PO -IV Zofran and Reglan p.r.n. for nausea/vomiting -pain management prn -Follow CBC -Discussed complete abstinence from cannabis to prevent recurrent symptoms # morbid obesity BMI greater than 43 -recommend weight loss efforts #Elevated blood pressures -likely secondary to above, no hx htn -monitor bps and initiate treatment if not improved DVT prophylaxis-SCPs and early ambulation Full code Time Spent With Patient Time: Total time managing care of this patient today ____ minutes. Quality Stroke Does the patient have a stroke diagnosis?: No VTE Prior VTE?: No VTE Risk Level:: Medical - moderate - high VTE Device Contraindication: N/A - Device Ordered VTE Drug Contraindication: Treatment Not Indicated
--- NOTE | 2023-09-05 15:24 | PC.NURSE ---
medications for nausea have worked intermittently, helping nausea for a short time before it returns. pt has admission pending. pt hypertensive, PA aware, vitals otherwise stable.
[2023-09-05 16:11] VITALS: BP 155/87; PULSE 72; RESP 14; O2SAT 99
[2023-09-05 20:00] VITALS: BP 148/86; PULSE 75; RESP 14; TEMP 36.8; O2SAT 97
[2023-09-05 23:34] VITALS: BP 159/81; PULSE 71; RESP 18; TEMP 37.2; O2SAT 99
[2023-09-06 03:17] VITALS: BP 154/72; PULSE 77; RESP 18; TEMP 37; O2SAT 97
[2023-09-06 03:52] LABS: Amphetamine Screen Urine Not Detected (Not Detect); Barbiturates, Urine Not Detected (Not Detect); Benzodiazepines Screen Urine Not Detected (Not Detect); Cannabinoid Screen Urine POSITIVE (Not Detect); Cocaine Screen Urine Not Detected (Not Detect); Fentanyl, urine Not Detected (Not Detect); Opiate Screen Urine Not Detected (Not Detect); Phencyclidine Screen Urine Not Detected (Not Detect)
[2023-09-06 07:04] LABS: MANUAL DIFF FLAG NO
[2023-09-06 07:17] LABS: Basophils Percent Auto 0.1 % (0-2); Eosinophils Percent Auto 0.1 % (0-4); Hematocrit 43.5 % (37.0-47.0); Hemoglobin 14.8 g/dl (12.0-16.0); Imm Gran Abs Auto 0.12 X10*3/uL (0.00-0.03); Imm Gran Pct Auto 0.8 % (0.0-0.4); Lymphocytes Absolute Auto 1.4 X10*3/uL (1.2-4.9); Mean Platelet Volume 8.9 fL (9.4-12.3); Monocytes Absolute Auto 0.9 X10*3/uL (0.1-1.2); Monocytes Percent Auto 5.7 % (2-11); Neutrophils Absolute Auto 13.5 x10*3/uL (2.0-8.3); Neutrophils Percent Auto 84.3 % (45-73); Platelet Count 465 X10*3/uL (160-400); Red Blood Count 4.78 X10*6/uL (4.20-5.50); Red Cell Distribution Width 12.3 % (11.0-16.0)
[2023-09-06 07:35] LABS: Anion Gap 15 (12-20); Blood Urea Nitrogen 4 mg/dL (9-16); Calcium 8.7 mg/dL (8.4-10.2); Carbon Dioxide 26 mmol/L (22-29); Chloride 98 mmol/L (96-108); Creatinine Clr Calc Pharmacy 149.9; Estimated Glomerular Filt Rate > 60; Glucose Random 104 mg/dL (60-115); Potassium 3.1 mmol/L (3.3-5.1); Sodium 136 mmol/L (135-145)
[2023-09-06 08:00] VITALS: BP 146/73; PULSE 74; RESP 20; TEMP 36.4; O2SAT 98
--- NOTE | 2023-09-06 09:02 | MHC.CM.PN ---
CM met with Patient at bedside and addressed ALEXANDER with her, providing Patient with the original and placing a copy on the chart.Patient lives in a house with her and she is functionally independent and working. Home/self care is the goal and CM has initiated and will follow for dc planning. PCP is Dr. Margaret Blankenship.
--- NOTE | 2023-09-06 10:43 | HO.PM.IMPN ---
Subjective Subjective Date of Service: 09/07/23 Interval History: persistent nausea /vomitin Review of Systems last episode this morning as per patient still has nausea abd somewhat improving advised to try at least clear liquids Physical Exam Vital Signs: Vital Signs: Last Vital Signs Temp 97.6 F 09/06/23 08:00 Pulse 74 09/06/23 08:00 Resp 20 09/06/23 08:00 BP 146/73 H 09/06/23 08:00 Pulse Ox 98 09/06/23 08:00 O2 Del Method Room Air 09/06/23 08:00 BMI result Body Mass Index 43.2 Appearance: Alert.? not in distress.? cvs: rrr, [id number] . res: clear to auscultation ,no rhonchii or wheezing abd: no rebound or guarding ,some epigastric soarness , bs present. ext pulses present , no cyanosis neuro:nonfocal. Objective Data Active Medications Acetaminophen (Acetaminophen 325 Mg Tablet) 650 mg PO Q6H PRN PRN Reason: Pain, Mild (Pain Scale 1-3) Hydromorphone HCl (Hydromorphone Hcl 1 Mg/Ml Syringe) 0.25 mg IVPUSH Q4H PRN; Protocol PRN Reason: Pain, Severe (Pain Scale 7-10) Lactated Ringer's (Lr) 1,000 mls @ 100 mls/hr IVCONT .Q10H [facility] Last Admin: 09/06/23 05:57 Dose: 100 mls/hr Documented By: RATNA Metoclopramide HCl (Metoclopramide Hcl 10 Mg/2 Ml Vial) 10 mg IVPUSH Q6H PRN PRN Reason: Nausea and Vomiting Ondansetron HCl (Ondansetron Hcl 4 Mg/2 Ml Vial) 4 mg IVPUSH Q8H PRN PRN Reason: Nausea and Vomiting Last Admin: 09/06/23 08:48 Dose: 4 mg Documented By: CRAIG Pantoprazole Sodium (Pantoprazole Sodium 40 Mg/10 Ml Vial) 40 mg IVPUSH BID@0630,1630 [facility] Last Admin: 09/06/23 08:44 Dose: 40 mg Documented By: CRAIG Sodium Chloride (0.9 % Sodium Chloride Flush 3 Ml Syringe) 3 ml IVFLUSH QSHIFT [facility] Last Admin: 09/06/23 08:41 Dose: Not Given Documented By: CRAIG Non-Admin Reason: IV Running Labs 09/06/23 06:52 09/06/23 06:52 Labs: Laboratory Results - last 24 hr 09/06/23 09/06/23 03:30 06:52 MCV 91.0 MCH 31.0 MCHC 34.0 RDW 12.3 Plt Count 465 H MPV 8.9 L Immature Gran % (Auto) 0.8 H Neut % (Auto) 84.3 H Lymph % (Auto) 9.0 L [place] % (Auto) 5.7 Eos % (Auto) 0.1 Baso % (Auto) 0.1 Lymph # (Auto) 1.4 [place] # (Auto) 0.9 Eos # (Auto) 0.0 Baso # (Auto) 0.0 Abs Immat Gran (auto) 0.12 H Absolute Neuts (auto) 13.5 H Absolute Nucleated RBC 0.000 Nucleated RBC % (auto) 0.0 Anion Gap 15 Estim Creat Clear Calc 149.9 Estimated GFR > 60 Random Glucose 104 Calcium 8.7 Urine Opiates Screen Not Detected Urine Fentanyl Screen Not Detected Ur Barbiturates Screen Not Detected Ur Phencyclidine Scrn Not Detected Ur Amphetamines Screen Not Detected U Benzodiazepines Scrn Not Detected Urine Cocaine Screen Not Detected U Marijuana (THC) Screen POSITIVE H Assessment and Plan (1) Cannabis abuse, daily use: Status: Acute (2) Cyclic vomiting syndrome: Status: Acute Assessment and Plan: 38-year-old female with history of cyclic vomiting syndrome, daily cannabis use to be observed for intractable nausea and vomiting with PO intolerance. cyclic vomiting syndrome-likely cannabis hyperemesis syndrome Mild leukocytosis likely reactive trending up possible reactive ua and ct abd 09/03 neg,denies any urinary or repiratory c/o. continue ivf,IV Zofran and Reglan p.r.n. for nausea/vomiting,added ppi and lidocaine patch. Clear liquid diet- advanced as tolerated,pain management prn Discussed complete abstinence from cannabis to prevent recurrent symptoms morbid obesity BMI greater than 43 -recommend weight loss efforts Elevated blood pressures -likely secondary to above, no hx htn -monitor bps and initiate treatment if not improved DVT prophylaxis-SCPs and early ambulation Full code ongoing need -persistent nausea/vomiting ,unable to tolerate diet-need iv antiemetic ,ppi,iv hydration . Time Spent With Patient Time: Total time managing care of this patient today ____ minutes. Quality Stroke Does the patient have a stroke diagnosis?: No VTE Prior VTE?: No VTE Risk Level:: Medical - moderate - high VTE Device Contraindication: N/A - Device Ordered VTE Drug Contraindication: Treatment Not Indicated
[2023-09-06 11:56] VITALS: BP 170/86; PULSE 69; RESP 20; TEMP 36.7; O2SAT 97
[2023-09-06 15:21] VITALS: BP 152/75; PULSE 76; RESP 18; TEMP 37.1; O2SAT 98
[2023-09-06 19:14] VITALS: BP 159/94; PULSE 69; RESP 18; TEMP 37; O2SAT 99
[2023-09-06 23:23] VITALS: BP 150/89; PULSE 67; RESP 18; TEMP 37.1; O2SAT 98
[2023-09-07] VITALS (7 sets, daily range): BP systolic 136–167; BP diastolic 72–85; PULSE 57–76; RESP 16–18; TEMP 36.3–36.9; O2SAT 96–100
--- NOTE | 2023-09-07 15:12 | HO.PM.IMPN ---
Subjective Subjective Date of Service: 09/07/23 Interval History: persistent nausea /vomitin Review of Systems still has nausea /vomiting abd soarness improvin want to try clears Physical Exam Vital Signs: Vital Signs: Last Vital Signs Temp 97.5 F 09/07/23 12:00 Pulse 57 09/07/23 12:00 Resp 16 09/07/23 12:00 BP 149/85 H 09/07/23 12:00 Pulse Ox 100 09/07/23 12:00 O2 Del Method Room Air 09/07/23 12:00 BMI result Body Mass Index 43.2 Appearance: Alert.? not in distress.? cvs: rrr, [id number] . res: clear to auscultation ,no rhonchii or wheezing abd: no rebound or guarding ,some epigastric soarness improving , bs present. ext pulses present , no cyanosis neuro:nonfocal. Objective Data Active Medications Acetaminophen (Acetaminophen 325 Mg Tablet) 650 mg PO Q6H PRN PRN Reason: Pain, Mild (Pain Scale 1-3) Last Admin: 09/07/23 12:55 Dose: 650 mg Documented By: DODIE Capsaicin (Capsaicin 0.025% Cream 60 Gm Tube) 1 appl TOPICAL TID PRN; Protocol PRN Reason: nasuea Hydromorphone HCl (Hydromorphone Hcl 1 Mg/Ml Syringe) 0.25 mg IVPUSH Q4H PRN; Protocol PRN Reason: Pain, Severe (Pain Scale 7-10) Last Admin: 09/07/23 14:00 Dose: 0.25 mg Documented By: DODIE Lactated Ringer's (Lr) 1,000 mls @ 100 mls/hr IVCONT .Q10H CHUY Last Admin: 09/07/23 09:24 Dose: 100 mls/hr Documented By: DODIE Metoclopramide HCl (Metoclopramide Hcl 10 Mg/2 Ml Vial) 10 mg IVPUSH Q6H PRN PRN Reason: Nausea and Vomiting Last Admin: 09/07/23 14:00 Dose: 10 mg Documented By: DODIE Ondansetron HCl (Ondansetron Hcl 4 Mg/2 Ml Vial) 4 mg IVPUSH Q8H PRN PRN Reason: Nausea and Vomiting Last Admin: 09/07/23 06:01 Dose: 4 mg Documented By: DELIO Pantoprazole Sodium (Pantoprazole Sodium 40 Mg/10 Ml Vial) 40 mg IVPUSH BID@0630,1630 [facility] Last Admin: 09/07/23 06:00 Dose: 40 mg Documented By: DELIO Sodium Chloride (0.9 % Sodium Chloride Flush 3 Ml Syringe) 3 ml IVFLUSH QSHIFT [facility] Last Admin: 09/07/23 09:24 Dose: 3 ml Documented By: DODIE Labs 09/06/23 06:52 09/06/23 06:52 Assessment and Plan (1) Cannabis abuse, daily use: Status: Acute (2) Cyclic vomiting syndrome: Status: Acute Plan 38-year-old female with history of cyclic vomiting syndrome, daily cannabis use to be observed for intractable nausea and vomiting with PO intolerance. cyclic vomiting syndrome-likely cannabis hyperemesis syndrome Mild leukocytosis likely reactive trending up possible reactive ua and ct abd 09/03 neg,denies any urinary or repiratory c/o. continue ivf,IV Zofran and Reglan p.r.n. for nausea/vomiting,added ppi and lidocaine patch. Clear liquid diet- advanced as tolerated,pain management prn Discussed complete abstinence from cannabis to prevent recurrent symptoms morbid obesity BMI greater than 43 -recommend weight loss efforts Elevated blood pressures -likely secondary to above, no hx htn -monitor bps and initiate treatment if not improved DVT prophylaxis-SCPs and early ambulation Full code ongoing need to stay-persistent nausea/vomiting ,unable to tolerate diet-need iv antiemetic ,ppi,iv hydration . Time Spent With Patient Time: Total time managing care of this patient today ____ minutes. Quality Stroke Does the patient have a stroke diagnosis?: No VTE Prior VTE?: No VTE Risk Level:: Medical - moderate - high VTE Device Contraindication: N/A - Device Ordered VTE Drug Contraindication: Treatment Not Indicated
[2023-09-08 02:56] VITALS: BP 132/72; PULSE 65; RESP 18; TEMP 36.2; O2SAT 99
[2023-09-08 07:26] VITALS: BP 130/79; PULSE 74; RESP 20; TEMP 36.2; O2SAT 98
[2023-09-08 08:16] LABS: Anion Gap 17 (12-20); Blood Urea Nitrogen 8 mg/dL (9-16); Calcium 9.1 mg/dL (8.4-10.2); Carbon Dioxide 22 mmol/L (22-29); Chloride 102 mmol/L (96-108); Creatinine Clr Calc Pharmacy 130.1; Estimated Glomerular Filt Rate > 60; Glucose Random 89 mg/dL (60-115); Potassium 3.9 mmol/L (3.3-5.1); Sodium 137 mmol/L (135-145)
--- NOTE | 2023-09-08 13:44 | PM.DS ---
DS: Providers Provider Date of Service: 09/08/23 Date of admission: 09/05/23 15:19 Primary care physician: Margaret Blankenship DO DS: Diagnosis Discharge Diagnosis (1) Cannabis abuse, daily use: Status: Acute (2) Cyclic vomiting syndrome: Status: Acute DS: Summary Hospital Course Hospital Course: Date of Service: 09/05/23 Chief Complaint: intractable vomiting 38-year-old female with history of cyclic vomiting syndrome, daily cannabis use presents to the ED earlier today for evaluation of intractable nausea and vomiting. She states that she has been experiencing episodic flares of cyclic vomiting ongoing for about 8 years. She reports she has about 3-4 episodes per year where she experiences nausea and vomiting for several days at a time before symptoms resolve. She has not been able to identify any triggers. She thought alcohol was possibly contributing as she was drinking about 2 alcoholic beverages on a daily basis. However, she stopped consuming alcohol about 4 weeks ago and had recurrent symptoms that began yesterday. Reports smoking marijuana 3 times daily. Denies any illicit drug use or cigarette smoking. She is not been able to tolerate any food though has been able to tolerate small amounts of liquid. She denies any associated fevers, rigors, constipation, melena, hematochezia, lightheadedness, shortness breath, chest pain. She does endorse diffuse abdominal pain without any radiation and also states she has diarrhea chronically. She has never been seen by Gastroenterology for symptoms. She was seen in the ED yesterday with CT abdomen/pelvis did not reveal any acute intra-abdominal abnormalities. Two treated with Dilaudid and droperidol which seemed to improve her symptoms but these recurred when she got home prompting her to return to the ED earlier today for evaluation. While in the ED today, patient hypertensive to 177/90, vitals otherwise stable. She has no known history of hypertension. She has a mild leukocytosis of 11.8, hematology studies otherwise unremarkable. Renal function is normal. Electrolyte levels normal except for slightly elevated chloride 109 and CO2 18. Hepatic function normal. In the ED, has received 1 mg Dilaudid, 10 mg Reglan, 1.5 mg droperidol, 4 mg ondansetron, and 10 mg Compazine. Despite this, continues with intractable nausea and vomiting unable to tolerate food. hospital course: 38-year-old female with history of cyclic vomiting syndrome, presented to hospital due to intractable nausea vomiting patient admitted to medical floor, treated with IV fluids I would be anti emetics PPI diet was gradually advanced, patient is tolerating regular diet today no further episodes of vomiting had mild nausea, CT abdomen and pelvis showed no acute abnormality patient is being discharged home on Reglan 5 mg to use as needed for recurrent nausea she has been strongly recommended to abstain from marijuana, patient noted to have BMI greater than 40 recommended low-calorie diet and exercise, patient initially noted to have high blood pressure likely due to vomiting that has normalized.. Time Spent with Patient Time attestation: Total time managing care of this patient today ____ minutes. Discharge coordination time: Greater than 30 minutes Quality: Safe Use of Opioids Does Pt have an Active Cancer Diagnosis on the Problem List?: No Quality: Stroke Does the patient have a stroke diagnosis?: No Physical Exam Vital Signs: Vital Signs: Last Vital Signs Temp 97.2 F 09/08/23 07:26 Pulse 74 09/08/23 07:26 Resp 20 09/08/23 07:26 BP 130/79 09/08/23 07:26 Pulse Ox 98 09/08/23 07:26 O2 Del Method Room Air 09/08/23 07:26 BMI result Body Mass Index 43.2 Const: Other: General Awake alert x 3, no acute distress. Neck is supple no JVD. CVS regular rate rhythm, Respiratory lungs clear to auscultation, no respiratory distress, no wheeze, no rhonchi. Gastrointestinal abdomen soft, nontender, bowel sounds audible, no guarding , no rigidity. Extremities no edema. Neuro nonfocal ,speech clear. Skin no rash psych appropriate affect DS: Data Data Completed and Pending Labs on day of discharge: Laboratory Results - last 24 hr 09/08/23 07:49 WBC 9.2 RBC 4.73 Hgb 14.5 Hct 44.4 MCV 93.9 MCH 30.7 MCHC 32.7 RDW 12.4 Plt Count 364 MPV 9.0 L Absolute Nucleated RBC 0.000 Nucleated RBC % (auto) 0.0 Sodium 137 Potassium 3.9 D Chloride 102 Carbon Dioxide 22 Anion Gap 17 BUN 8 L Creatinine 0.76 Estim Creat Clear Calc 130.1 Estimated GFR > 60 Random Glucose 89 Calcium 9.1 Discharge Plan Discharge Anticipated Discharge Date/Time: 09/08/23 13:40 Patient Disposition: Home, Self-Care Discharge Diagnosis: cyclical vomiting syndrome Referrals: Margaret Blankenship DO [Primary Care Provider] - 1 Week Discharge Medications: New metoclopramide HCl [Reglan] 5 mg tablet 5 mg PO Q6H PRN (Reason: nausea and vomiting) Qty: 14 0RF Discharge Orders: Discharge Order (Routine); Ordered 09/08/23 Ordered By: Ghassan Rios Diet: Advance to usual diet Activity on Discharge: As tolerated Stand Alone Forms: Patient Portal Discharge page Care Plan Goals: cyclical vomiting, strongly recommend to abstain from marijuana use take bland diet use Reglan as needed for nausea Health Concerns: exercise/ healthy life style Plan of Treatment: outpatient follow-up with primary care physician call for appointment Assessment: as above
--- NOTE | 2023-09-08 14:06 | MHC.CM.PN ---
IMM 09/06/23 Patient is discharged today to home self care. She has arranged for transport home.
== END 2023-09-08 14:47 | disposition home or self-care (01) ==
LOC: HO.ED 08:42 → HO.EDOVER 15:23 → HO.S3 16:08 → HO.IMC 16:10 → HO.S3 09-07 16:43
PROVIDERS: Admitting Provider Physician Assistant; Emergency Provider Emergency Medicine Emergency Medical Services; PCP Family Medicine; Visit Provider Hospitalist
DX: R11.15 Cyclical vomiting syndrome unrelated to migraine (principal); F12.10 Cannabis abuse, uncomplicated; R11.2 Nausea with vomiting, unspecified; R52 Pain, unspecified; I10 Essential (primary) hypertension; Z79.899 Other long term (current) drug therapy
CPT/HCPCS: 36415; 80048; 80053; 80307; 85025; 85027; 96361; 96374; 96375; 96376; 99221; 99285; J1170; J1790; J1885; J2405; J2765; J3360

== ENCOUNTER → 2023-09-05 15:19 | Outpatient (BNV) | payer BC, SELFPAY | PROVIDERS: Admitting Provider Physician Assistant; Emergency Provider Emergency Medicine Emergency Medical Services; PCP Family Medicine; Visit Provider Physician Assistant | DX: R11.15 Cyclical vomiting syndrome unrelated to migraine (principal); F12.10 Cannabis abuse, uncomplicated | CPT/HCPCS: 99222; 99232; 99239 ==

== ENCOUNTER 2024-06-15 10:48 | Outpatient (REF) | payer BC, SELFPAY ==
--- NOTE | ~2024-06-15 | XR_ITS ---
EXAMINATION: XR FOOT, LEFT CLINICAL INFORMATION: Left plantar foot pain COMPARISON: None available. TECHNIQUE: AP, lateral, and oblique views of the left foot. FINDINGS: The bones and soft tissues are normal. No fracture. Alignment is anatomic. Joint spaces are maintained. XR/XR foot LT min 3V IMPRESSION: Normal left foot.
== END 2024-06-15 10:49 | disposition home or self-care (01) ==
LOC: HO.HHCX 10:48
PROVIDERS: Visit Provider Family Medicine
DX: M79.672 Pain in left foot (principal)
CPT/HCPCS: 73630

== ENCOUNTER 2024-06-15 11:46 | Outpatient (REF) | payer BC, SELFPAY ==
[2024-06-15 13:07] LABS: Hematocrit 41.2 % (37.0-47.0); Hemoglobin 13.5 g/dl (12.0-16.0); Mean Corpuscular HGB Conc 32.8 g/dl (31.0-35.0); Mean Corpuscular Hemoglobin 29.2 pg (27.0-33.0); Mean Platelet Volume 9.1 fL (9.4-12.3); Platelet Count 428 X10*3/uL (160-400); Red Blood Count 4.63 X10*6/uL (4.20-5.50); Red Cell Distribution Width 12.9 % (11.0-16.0); White Blood Count 8.1 X10*3/uL (4.8-10.8)
[2024-06-15 13:18] LABS: Estimated Average Glucose 105 mg/dL; Hemoglobin A1c % 5.3 % (<6.0)
[2024-06-15 13:44] LABS: Alanine Aminotransferase 17 U/L (0-31); Albumin Level 4.5 g/dL (3.5-5.0); Alkaline Phosphatase 88 U/L (39-117); Anion Gap 15 (12-20); Aspartate Amino Transferase 19 U/L (5-31); Bilirubin Direct 0.2 mg/dL (0.0-0.5); Bilirubin Total 0.5 mg/dL (0.0-1.0); Blood Urea Nitrogen 12 mg/dL (9-16); Calcium 10.1 mg/dL (8.4-10.2); Carbon Dioxide 25 mmol/L (22-29); Chloride 103 mmol/L (96-108); Cholesterol 183 mg/dL (<200); Estimated Glomerular Filt Rate > 60; Glucose Random 87 mg/dL (60-115); HDL Cholesterol 54 mg/dL (>40); LDL Cholesterol Calculated 108 mg/dL (<100); Potassium 3.7 mmol/L (3.3-5.1); Sodium 139 mmol/L (135-145); Total Protein 7.7 g/dL (6.5-8.0); Triglycerides 109 mg/dL (<150)
[2024-06-15 13:57] LABS: Hepatitis A Antibody IgG Nonreactive (Nonreactive); ~Hepatitis A Antibody IgG 0.57 S/CO (0.00-0.99)
[2024-06-15 14:00] LABS: HBS Num1 11.74 mIU/mL (0-7.99); HBc Num1 0.12 S/CO (0.00-0.79); HBsAGNum1 0.29 S/CO (0.00-0.99); HIV AB/AG Nonreactive (Nonreactive); HIV Num 1 0.06 S/CO (0.00-0.99); Hepatitis B Core Antibody Nonreactive (Nonreactive); Hepatitis B Surface Antigen Negative (Negative); ~HepC Num1 0.15 S/CO (0.00-0.79); ~Hepatitis C Antibody Nonreactive (Nonreactive)
[2024-06-15 14:02] LABS: Free T4 (Free Thyroxine) 0.94 ng/dL (0.71-1.85); Thyroid Stimulating Hormone 1.28 uIU/mL (0.32-4.0); Vitamin D 25-OH Total 18.9 ng/mL (>30)
[2024-06-15 14:47] LABS: HBS Num2 12.26 mIU/mL (0-7.99); HBS Num3 12.43 mIU/mL (0-7.99); ~Hepatitis B Surface Antibody REACTIVE (Nonreactive)
[2024-06-15 14:52] LABS: CT PCR NOT DETECTED (Not Detect.); NG PCR NOT DETECTED (Not Detect.)
[2024-06-17 09:04] LABS: RPR Rapid Plasma Reagin NON-REACTIVE (NON-REACTIVE)
== END 2024-06-15 11:47 | disposition home or self-care (01) ==
LOC: HO.HHCL 11:46
PROVIDERS: Visit Provider Family Medicine
DX: Z00.00 Encounter for general adult medical examination without abnormal findings (principal); Z13.1 Encounter for screening for diabetes mellitus
CPT/HCPCS: 36415; 80048; 80061; 80076; 82306; 83036; 84439; 84443; 85027; 86592; 86704; 86706; 86708; 86803; 87340; 87389; 87491; 87591

== ENCOUNTER 2024-07-26 17:27 | Outpatient (REF) | payer BC, SELFPAY ==
[2024-07-28 12:58] LABS: HPV mRNA E6/E7 Not Detected (Not Detected)
== END 2024-07-26 17:28 | disposition home or self-care (01) ==
LOC: HO.HHCLNP 17:27
PROVIDERS: Visit Provider Family Medicine
DX: Z01.419 Encounter for gynecological examination (general) (routine) without abnormal findings (principal)
CPT/HCPCS: 36415; 87624; 88175

== ENCOUNTER 2024-09-05 13:00 | Outpatient (RCR) | payer BC, SELFPAY ==
[2024-08-03 10:01] VITALS: BP 139/83; PULSE 85
== END 2024-09-05 13:58 | disposition home or self-care (01) ==
LOC: HO.PT 13:00
PROVIDERS: PCP Family Medicine; Visit Provider Family Medicine
DX: M79.672 Pain in left foot (principal)
CPT/HCPCS: 97110; 97140; 97161; 97530